=== PATIENT | male | born 1970 | race Caucasian/White ===

== ENCOUNTER 2017-10-07 22:56 | Emergency (ER) | payer BC ==
--- NOTE | 2017-10-07 22:59 | ED Physician Documentation ---
General Adult - HISTORIAN Historian: patient - HPI Stated Complaint: laceration on right eye Chief Complaint: Laceration/Recheck/Suture Onset: minutes (30) Timing: still present Severity: mild Further Comments: yes (hit his head on his microwave in his truck. No LOC. He has no other complaints) Last known Well Code/Unknown Code: Unknown - ROS CONST: no problems - PAST HX Past History: none Other History: none Surgeries/Procedures: none Immunizations: tetanus - SOCIAL HX Smoking History: non-smoker Alcohol Use: none Drug Use: none - FAMILY HX Family History: No - REVIEWED ASSESSMENTS Nursing Assessment Reviewed: Yes Vitals Reviewed: Yes Procedures Wound Location: face Wound's Depth, Shape: superficial Wound Repaired With: Dermabond General Adult Physical Exam - PHYSICAL EXAM GENERAL APPEARANCE: no distress EENT: eye inspection normal NECK: normal inspection RESPIRATORY: no resp distress CVS: reg rate & rhythm, heart sounds normal, equal pulses, no murmur ABDOMEN: soft BACK: normal inspection SKIN: warm/dry, other (3 cm laceration superficial on right eyelid ) EXTREMITIES: non-tender, normal range of motion, no evidence of injury, no edema NEURO: oriented X3, CN's nml as tested, motor nml, sensation nml, mood/affect nml, cognition normal Discharge Clincal Impression: Laceration of head Qualifiers: Encounter type: initial encounter Location of open wound of head: eyelid Foreign body presence: without foreign body Laterality: right Qualified Code(s) : S01.111A - Laceration without foreign body of right eyelid and periocular area , initial encounter Referrals: Primary Doctor,No [Primary Care Provider] - 2 Days Comments: 1. keep area clean and dry 2. Monitor for signs of infection - redness, swelling, drainage 3. See PCP in 2-4 days for any concerns 4. Return to ER for any concerns Condition: Stable Disposition: 01 HOME, SELF-CARE Decision to Admit: NO Date of Decison to Admit: 10/07/17 Decision Time: 23:18
[2017-10-07] MEDS ORDERED: DIPH,PERTUSS(ACELL),TET VAC/PF 0.5 ML DISP.SYRIN IM ONE (23:20)
[2017-10-07 23:57] VITALS: BP 153/80
== END 2017-10-07 23:25 | disposition home or self-care (01) ==
LOC: ED 22:56
DX: S01.111A Laceration without foreign body of right eyelid and periocular area, initial encounter (principal); X58.XXXA Exposure to other specified factors, initial encounter; Y92.9 Unspecified place or not applicable; Y93.9 Activity, unspecified; Y99.9 Unspecified external cause status
CPT/HCPCS: 12013; 90471; 90715